=== PATIENT | female | born 1985 | race African-American/Black ===

== ENCOUNTER 2018-02-25 08:52 | Inpatient (IN) ==
[2018-02-25] MEDS ORDERED: ceFAZolin 2,000 MG in PREMIX 1 EACH IV ONE (09:23)
[2018-02-25] MEDS ORDERED: FAMOTIDINE 20 MG/2 ML VIAL IV ONE (09:23)
[2018-02-25] MEDS ORDERED: CITRIC ACID/SODIUM CITRATE 30 ML UDCUP PO ONE (09:23)
[2018-02-25] MEDS ORDERED: OXYTOCIN/LR 30 UNIT/1,000 ML BAG IV ONE (09:25)
[2018-02-25] MEDS ORDERED: OXYTOCIN 10 UNIT/ML VIAL IM ONE (09:25)
[2018-02-25] MEDS ORDERED: LACTATED RINGERS 1,000 ML IV SCH ×2 (09:30→12:30)
[2018-02-25 09:42] LABS: Basophils % 0.3 % (0.0-0.8); Eosinophils # 0.1 10*3/uL (0.0-0.87); Hemoglobin 8.3 GM/DL (12.0-16.0); Immature Granulocytes % 0.6 %; Immature Granulocytes Absolute 0.05 #; Lymphocytes # 1.7 10*3/uL (1.4-4.0); Mean Corpuscular HGB Conc 29.6 GM/DL (32-36); Mean Corpuscular Hemoglobin 20 PG (27-34); Mean Corpuscular Volume 66.5 FL (87-102); Mean Platelet Volume 10.3 FL (9.6-12.0); Monocytes # 0.5 10*3/uL (0.11-0.8); Monocytes % 6.1 % (1.7-12.7); Neutrophils # 6.2 10*3/uL (1.4-7.4); Platelet Count 254 T/CUMM (130-400); Red Blood Count 4.21 MC/CUMM (3.8-5.5); Red Cell Distribution Width 19.7 % (9.3-17.3); White Blood Count 8.7 T/CUMM (4-12)
[2018-02-25 11:31] LABS: Cord Arterial Blood HCO3 19.7 MMOL/L
[2018-02-25 11:36] LABS: Cord Venous Blood HCO3 21.6 MMOL/L; Cord Venous Blood PCO2 42.2 MMHG; Cord Venous Blood PO2 27.7
[2018-02-25 11:47] LABS: Apearance,Urine CLEAR (Clear); Bilirubin,Urine Negative (Negative); Blood, Urine Negative (Negative); Glucose,Urine (UA) Negative (Negative); Ketones,Urine 5 mg/dL (Negative); Mucus,Urine Many /LPF (Occasional); Nitrite,Urine Negative (Negative); Protein,Urine Negative; RBC,Urine 1 /HPF (0-4); Squamous Epithelial Cell,Urine Occasional /HPF (0-10); Urine Color Yellow (Yellow); Urine Specific Gravity 1.025 (1.001-1.035); WBC,Urine <1 /HPF (0-6)
[2018-02-25] MEDS ORDERED: MORPHINE 10 MG/10 ML VIAL ONE (11:57)
[2018-02-25] MEDS ORDERED: ONDANSETRON 4 MG/2 ML VIAL ONE (11:59)
[2018-02-25] MEDS ORDERED: BUPIVACAINE SPINAL 0.75% 2 ML AMP SPINAL ONE (12:00)
[2018-02-25] MEDS ORDERED: ACETAMINOPHEN 325 MG TABLET PO PRN (12:05)
[2018-02-25] MEDS ORDERED: OXYTOCIN/LR 20 UNIT/1,000 ML BAG IV ONE (12:05)
[2018-02-25] MEDS ORDERED: ONDANSETRON 4 MG/2 ML VIAL IV PRN (12:05)
[2018-02-25] MEDS ORDERED: RHO(D) IMMUNE GLOBULIN 300 MCG SYRINGE IM ONE (12:05)
[2018-02-25] MEDS ORDERED: HYDROmorphone 2 MG/1 ML VIAL IV PRN (13:06)
[2018-02-25] MEDS: MEPERIDINE 50 MG/1 ML VIAL IV PRN ×2 (15:57→22:29)
[2018-02-25 16:11] LABS: Basophils % 0.2 % (0.0-0.8); Eosinophils # 0.1 10*3/uL (0.0-0.87); Eosinophils % 0.4 % (0.00-10.9); Hematocrit 26.4 VOL% (35.7-47.0); Immature Granulocytes % 0.5 %; Immature Granulocytes Absolute 0.06 #; Mean Corpuscular HGB Conc 30.3 GM/DL (32-36); Mean Corpuscular Hemoglobin 20 PG (27-34); Mean Corpuscular Volume 66.8 FL (87-102); Mean Platelet Volume 10.8 FL (9.6-12.0); Monocytes # 0.9 10*3/uL (0.11-0.8); Neutrophils # 10.1 10*3/uL (1.4-7.4); Neutrophils % 76.9 % (38.7-73.9); Platelet Count 220 T/CUMM (130-400); Red Blood Count 3.95 MC/CUMM (3.8-5.5); Red Cell Distribution Width 19.4 % (9.3-17.3)
[2018-02-25] MEDS ORDERED: SODIUM CHLORIDE 0.9% 1,000 ML IV PRN (16:42)
[2018-02-25] MEDS: ceFAZolin 1,000 MG in SYRINGE 1 EACH IV SCH (19:15)
[2018-02-25] MEDS: DOCUSATE SODIUM 100 MG CAPSULE PO SCH (21:38)
[2018-02-26] MEDS: ceFAZolin 1,000 MG in SYRINGE 1 EACH IV SCH (03:05)
[2018-02-26 04:57] LABS: Basophils % 0.2 % (0.0-0.8); Eosinophils # 0.1 10*3/uL (0.0-0.87); Eosinophils % 1.1 % (0.00-10.9); Hematocrit 27.1 VOL% (35.7-47.0); Hemoglobin 8.4 GM/DL (12.0-16.0); Immature Granulocytes % 0.6 %; Immature Granulocytes Absolute 0.07 #; Lymphocytes # 1.7 10*3/uL (1.4-4.0); Lymphocytes % 15.4 % (21.3-54.2); Mean Corpuscular Hemoglobin 22 PG (27-34); Mean Corpuscular Volume 70.2 FL (87-102); Mean Platelet Volume 12.1 FL (9.6-12.0); Monocytes # 0.9 10*3/uL (0.11-0.8); Monocytes % 8.4 % (1.7-12.7); Neutrophils # 8.2 10*3/uL (1.4-7.4); Neutrophils % 74.3 % (38.7-73.9); Platelet Count 205 T/CUMM (130-400); Red Blood Count 3.86 MC/CUMM (3.8-5.5); Red Cell Distribution Width 21.2 % (9.3-17.3); White Blood Count 11.1 T/CUMM (4-12)
[2018-02-26] MEDS ORDERED: WITCH HAZEL PADS 100/JAR TOP PRN (06:22)
[2018-02-26] MEDS ORDERED: HYDROCORTISONE 2.5% RECTAL CREAM 30 GM TUBE TOP PRN (06:23)
[2018-02-26] MEDS: SIMETHICONE CHEW 80 MG TABLET PO PRN ×2 (09:30→21:21)
[2018-02-26] MEDS: MULTIVITAMIN (PRENATAL) TABLET PO SCH (09:30)
[2018-02-26] MEDS: DOCUSATE SODIUM 100 MG CAPSULE PO SCH ×2 (09:30→21:21)
[2018-02-26] MEDS: MAGNESIUM HYDROXIDE SUSP 30 ML UDCUP PO PRN ×2 (09:30→21:21)
[2018-02-26] MEDS: IBUPROFEN 800 MG TABLET PO PRN (12:43)
[2018-02-26] MEDS: METOCLOPRAMIDE 10 MG TABLET PO SCH (21:21)
[2018-02-27] MEDS: METOCLOPRAMIDE 10 MG TABLET PO SCH ×3 (00:17→11:02)
[2018-02-27] MEDS: IBUPROFEN 800 MG TABLET PO PRN (03:10)
[2018-02-27] MEDS ORDERED: MAGNESIUM CITRATE 300 ML BOTTLE PO ONE (04:36)
[2018-02-27 07:20] VITALS: BP 133/70
[2018-02-27] MEDS ORDERED: BISACODYL 10 MG SUPP RECTAL PRN (08:02)
[2018-02-27] MEDS: MULTIVITAMIN (PRENATAL) TABLET PO SCH (09:01)
[2018-02-27] MEDS: DOCUSATE SODIUM 100 MG CAPSULE PO SCH (09:01)
[2018-02-27] MEDS: SIMETHICONE CHEW 80 MG TABLET PO PRN (09:01)
[2018-02-27] MEDS: MAGNESIUM HYDROXIDE SUSP 30 ML UDCUP PO PRN (09:01)
== END 2018-02-27 17:30 | disposition home or self-care (01) | DRG 788 ==
LOC: N.LDOUT 08:52 → N.LD 08:56 → N.OB 14:48
PROVIDERS: ADMIT Obstetrics & Gynecology; ATTEND Obstetrics & Gynecology
PROC: LDCSECT (ICD-10-PCS; 2018-02-25 11:00)